=== PATIENT | male | born 1940 | race Caucasian/White ===

== ENCOUNTER 2016-07-01 08:55 | Inpatient (IN) | payer MEDICARE, OTHER ==
[2016-07-01] MEDS ORDERED: ASPIRIN EC81 MG PO (09:42)
[2016-07-01] MEDS ORDERED: LIPITOR40 M1 PO (09:42)
[2016-07-01] MEDS ORDERED: HYDROCHLOROTH12.5 M2 PO (09:43)
[2016-07-01] MEDS ORDERED: BRILINTA90 M1 PO (09:43)
[2016-07-01] MEDS ORDERED: COREG6.25 M1 PO (09:43)
[2016-07-01] MEDS ORDERED: PLAVIX75 M1 PO (09:44)
[2016-07-01 13:34] LABS: URINE LEUKOCYTE ESTERASE NEGATIVE (NEG); URINE PROTEIN MODERATE (NEG); URINE SPECIFIC GRAVITY 1.015 (1.003-1.030)
[2016-07-01 13:42] LABS: URINE APPEARANCE CLEAR; URINE BILIRUBIN NEGATIVE (NEG); URINE BLOOD SMALL (NEG); URINE COLOR YELLOW; URINE GLUCOSE (UA) SMALL (NEG); URINE KETONE NEGATIVE (NEG); URINE NITRITE NEGATIVE (NEG)
[2016-07-01 13:44] LABS: URINE EPITHELIAL CELLS 0 /[HPF] (0-10); URINE WBC 0 /[HPF] (0-5)
[2016-07-02 07:21] LABS: ANION GAP 14 mmol/L (0-20); BLOOD UREA NITROGEN 28 mg/dl (6-24); CALCIUM 8.1 mg/dl (8.5-10.5); CARBON DIOXIDE-VENOUS 27 mmol/L (22-32); CHLORIDE 101 mmol/l (96-110); GLUCOSE 181 mg/dL (70-110); POTASSIUM 3.6 mmol/L (3.7-5.1); SODIUM 138 mmol/L (135-145); eGFR VALUE FOR BLACK 45 mL/Min
== END 2016-07-02 13:50 | DRG 247 ==
LOC: PCUB 08:55
PROVIDERS: ADMIT Internal Medicine Cardiovascular Disease
PROC: 3E0F7GC Introduction of Other Therapeutic Substance into Respiratory Tract, Via Natural or Artificial Opening (ICD-10-PCS; principal; 2016-07-01)
PROC: B2111ZZ Fluoroscopy of Multiple Coronary Arteries using Low Osmolar Contrast (ICD-10-PCS; principal; 2016-07-01)
PROC: 027034Z Dilation of Coronary Artery, One Artery with Drug-eluting Intraluminal Device, Percutaneous Approach (ICD-10-PCS; principal; 2016-07-01)
PROC: 4A023N8 Measurement of Cardiac Sampling and Pressure, Bilateral, Percutaneous Approach (ICD-10-PCS; principal; 2016-07-01)
PROC: B246ZZZ Ultrasonography of Right and Left Heart (ICD-10-PCS; principal; 2016-07-01)
DX: I25.110 Atherosclerotic heart disease of native coronary artery with unstable angina pectoris (principal); I13.10 Hypertensive heart and chronic kidney disease without heart failure, with stage 1 through stage 4 chronic kidney disease, or unspecified chronic kidney disease; N18.9 Chronic kidney disease, unspecified; E78.5 Hyperlipidemia, unspecified; I25.2 Old myocardial infarction
CPT/HCPCS: C1725; C1760; C1769; C1874; C9600-LD; J1200; J1644; J1720; J2250; J3010; Q9967